=== PATIENT | male | born 1945 | race Two or more races ===

== ENCOUNTER 2017-06-09 06:24 | Inpatient (IN) | payer OTHER ==
[~2017-06-09] VITALS: Ht 182.9 cm; Wt 102.5 kg
[2017-06-09] VITALS (7 sets, daily range): BP systolic 131–173; BP diastolic 59–101
--- NOTE | 2017-06-09 06:39 | NUR ---
PT A/OX4, PT BIBA C/O SOB, PT WAS GIVEN ALBUTEROL 5MG BY EMS PRIOR TO ARRIVAL, PT STATES HE HAS BEEN HAVING SOB X 5 DAYS BUT GETTING WORSE AND WORSE X 5 DAYS, PT ON MONITOR, IN GOWN, IV PLACED PRIOR TO ARRIVAL, LABS DRAWN AND SENT TO LAB, MD AT BEDSIDE WILL CONTINUE TO MONITOR.
[2017-06-09] MEDS ORDERED: NITROGLYCERIN 0.4 MG/TAB BOTTLE ONE (06:42)
[2017-06-09 06:55] LABS: BASOPHILS % (AUTO) 0.2 % (0.0-2.0); EOSINOPHILS % (AUTO) 0.3 % (0.0-6.0); HEMATOCRIT 28 % (39-51); HEMOGLOBIN 9.3 g/dL (13.5-17.5); LYMPHOCYTES # (AUTO) 0.5 /CMM (0.8-4.8); LYMPHOCYTES % (AUTO) 7.4 % (20.0-44.0); MEAN CORPUSCULAR HEMOGLOBIN 27 PG (26.0-33.0); MEAN CORPUSCULAR HGB CONC 33 g/dl (31.0-36.0); MEAN CORPUSCULAR VOLUME 81 fL (80-96); MONOCYTES # (AUTO) 0.3 /CMM (0.1-1.30); MONOCYTES % (AUTO) 4.4 % (2.0-12.0); NEUTROPHILS # (AUTO) 5.7 /CMM (1.8-8.9); NEUTROPHILS % (AUTO) 87.7 % (43.0-81.0); PLATELET COUNT (AUTO) 176 /CMM (150-450); RED BLOOD CELL COUNT(AUTO) 3.49 MIL/uL (4.5-6.0); WHITE BLOOD COUNT (AUTO) 6.6 K/uL (4.3-11.0)
[2017-06-09] MEDS ORDERED: NITROGLYCERIN 0.4 MG/TAB BOTTLE SL ONE (07:00)
[2017-06-09 07:02] LABS: CALCIUM, SERUM 8.5 mg/dL (8.5-10.1); CREATININE 1.9 mg/dL (0.6-1.3); POTASSIUM 4.1 mmol/L (3.5-5.1)
[2017-06-09 07:10] LABS: TROPONIN I 0.098 ng/mL (0.00-0.056)
[2017-06-09] MEDS ORDERED: NTG 50 MG/D5W250 ML BOTTL 250 ML IV ONE ×2 (07:27→07:30)
[2017-06-09] MEDS ORDERED: ASPIRIN 81 MG TAB.CHEW ONE (07:27)
[2017-06-09] MEDS ORDERED: ASPIRIN 81 MG TAB.CHEW PO ONE (07:30)
--- NOTE | 2017-06-09 07:38 | NUR ---
PANEL ON-CALL PAGED
--- NOTE | 2017-06-09 07:40 | NUR ---
SECOND IV ACCESS INITIATED, PT MEDICATED ORDERED. VSS. WILL CLOSELY MONITOR.
--- NOTE | 2017-06-09 07:50 | NUR ---
DR. JOE AT BS.
--- NOTE | 2017-06-09 08:00 | NUR ---
REPORT GIVEN TO CHICHO TEAGUE FOR ICU ROOM 261.
--- NOTE | 2017-06-09 08:15 | NUR ---
DR. JAY AT BS.
[2017-06-09] MEDS ORDERED: FUROSEMIDE 40 MG/4 ML VIAL ONE (08:24)
--- NOTE | 2017-06-09 08:25 | NUR ---
TITRATED NTG PER PROTOCOL. VSS.
[2017-06-09] MEDS ORDERED: MAGNESIUM HYDROXIDE 30 ML UDC PO PRN (08:30)
[2017-06-09] MEDS ORDERED: Z GUARD REMEDY 2 OZ OINT TP PRN (08:30)
[2017-06-09] MEDS ORDERED: DEXTROSE 50%-WATER 50 ML DISP.SYRIN IV PRN (08:30)
[2017-06-09] MEDS ORDERED: ONDANSETRON HCL/PF 4 MG/2 ML VIAL IVP PRN (08:30)
[2017-06-09] MEDS ORDERED: ACETAMINOPHEN 325 MG TABLET PO PRN (08:30)
[2017-06-09] MEDS ORDERED: MAG HYDROX/AL HYDROX/SIMETH 30 ML UDC PO PRN (08:30)
[2017-06-09] MEDS ORDERED: FUROSEMIDE 20 MG/2 ML VIAL IV SCH (08:30)
--- NOTE | 2017-06-09 08:30 | NUR ---
ICU INITIAL NOTES RECEIVED PT VIA CIARRA, A/O X 4, ABLE TO MAKE NEEDS KNOWN, FOLLOWS COMMANDS, PT WAS PLACE ON 3L NC, SATING 100%, NO S/S OF RESP.DISTRESS OR SOB NOTED AT THIS TIME, PT WAS PLACED ON BEDSIDE MONITOR SHOWING A-FIB @ 82BPM, NO S/S OF CHEST PAIN OR DISCOMFORT NOTED AT THIS TIME, PT HAS LFA #20G,SL, RAC #20G, NITRO DRIP @5MCG, C/D/I/PATENT,FLUSHING WELL, NO S/S OF INFECTION/ INFILTRATION NOTED AT THIS TIME, PT IS AMBULATORY, URINAL AT BEDSIDE, ALL SAFETY MEASURES IN PLACE AT ALL TIMES, CALL LIGHT WITHIN EASY REACH, ALL NEEDS MET AT THIS TIME, WILL MONITOR PT CLOSELY
--- NOTE | 2017-06-09 08:40 | NUR ---
ICU NOTE NITRO DRIP D/C PER MD ORDER
[2017-06-09] MEDS ORDERED: hydrALAZINE HCL 50 MG TABLET PO SCH (09:00)
[2017-06-09 09:42] LABS: MAGNESIUM 2.3 mg/dL (1.8-2.4); PHOSPHORUS 3.4 mg/dL (2.5-4.9)
--- NOTE | 2017-06-09 10:00 | NUR ---
ICU NOTE AT BEDSIDE, INFORMED OF ALL LABS AND RESULTS, ORDERED PT IS BE TELE, U/S TECH AT BEDSIDE
[2017-06-09] MEDS: ATORVASTATIN 40 MG TABLET PO SCH (10:14)
[2017-06-09] MEDS: ENOXAPARIN SODIUM 30 MG/0.3 ML DISP.SYRIN SQ SCH (10:14)
[2017-06-09] MEDS: CARVEDILOL 6.25 MG TABLET PO SCH ×2 (11:12→21:57)
[2017-06-09] MEDS: AMLODIPINE BESYLATE 5 MG TABLET PO SCH (11:12)
[2017-06-09] MEDS: BLOOD SUGAR DIAGNOSTIC 1 EACH STRIP VI SCH ×3 (11:12→21:57)
[2017-06-09] MEDS: *INSULIN REGULAR(HUMULIN R)HUM 100 UNIT/ML VIAL SQ PRN ×2 (11:40→21:59)
[2017-06-09] MEDS: FUROSEMIDE 100 MG/10 ML VIAL IV SCH ×2 (13:22→19:04)
--- NOTE | 2017-06-09 13:53 | NUR ---
ICU NOTE REPORT GIVEN TO YESICA TEAGUE, PT WAS TAKEN TO ROOM 312-2, PT WAS ORIENTATED TO ROOM, PLACE IN BED WITH CALL LIGHT, RN AND HEALTH AND WELLNESS ADVISOR AWARE PT IS IN ROOM.
--- NOTE | 2017-06-09 14:10 | NUR ---
EMAIL PRODUCER NOTES RECEIVED PATIENT IN BED, NO APPARENT DISTRESS NOTED, DENIES PAIN, DENIES SOB.PATIENT AWAKE AND VERBALLY RESPONSIVE, ON TELE MONITORING SR WITH BBB. PATIENT ON 3L O2 VIA NC. IV LINE ON LFA AND RAC PATENT. ALL NEEDS MET, KEPT CLEAN AND DRY.
[2017-06-09] MEDS: INSULIN REGULAR, HUMAN 100 UNIT/ML 3 ML VIAL SQ PRN (18:31)
--- NOTE | 2017-06-09 19:00 | NUR ---
FOREIGN STUDENT ADVISER NOTES PATIENT IN BED A/OX4, IN NO APPARENT DISTRESS. DENIES PAIN DENIES SOB. IV LINE ON LFA AND RAC PATENT.ALL DUE MEDS GIVEN, ALL NEEDS MET, KEPT CLEAN AND DRY.
--- NOTE | 2017-06-09 19:25 | NUR ---
RN OPEN NOTES RECEIVED PATIENT AWAKE IN BED. A/O X4. NO SIGNS OF DISTRESS OR DISCOMFORT. BREATHING EVEN AND UNLABORED. ON TELE MONITORING WITH SR NOTED. IV ACCESS IN LFA AND RAC, PATENT AND INTACT, NO SIGNS OF REDNESS OR INFILTRATION. BED IN LOW LOCKED POSITION WITH SIDE RAILS X2. CALL LIGHT WITHIN REACH. WILL CONTINUE TO MONITOR.
[2017-06-09] MEDS: ZOLPIDEM TARTRATE 5 MG TABLET PO PRN (21:57)
--- NOTE | 2017-06-09 21:57 | NUR ---
RN NOTES ADMINISTERED AMBIEN 5MG ORDERED AT PATIENT REQUEST FOR INSOMNIA. WILL CONTINUE TO MONITOR.
[2017-06-10] VITALS (8 sets, daily range): BP systolic 118–154; BP diastolic 59–75
[2017-06-10 06:23] LABS: BASOPHILS % (AUTO) 0.3 % (0.0-2.0); EOSINOPHILS # (AUTO) 0.1 /CMM (0.0-0.7); EOSINOPHILS % (AUTO) 2.4 % (0.0-6.0); HEMATOCRIT 30 % (39-51); LYMPHOCYTES # (AUTO) 0.7 /CMM (0.8-4.8); MEAN CORPUSCULAR HEMOGLOBIN 27 PG (26.0-33.0); MEAN CORPUSCULAR HGB CONC 33 g/dl (31.0-36.0); MEAN CORPUSCULAR VOLUME 81 fL (80-96); MONOCYTES # (AUTO) 0.4 /CMM (0.1-1.30); MONOCYTES % (AUTO) 6.9 % (2.0-12.0); NEUTROPHILS # (AUTO) 4.4 /CMM (1.8-8.9); NEUTROPHILS % (AUTO) 77.4 % (43.0-81.0); PLATELET COUNT (AUTO) 182 /CMM (150-450); RDW COEFFICIENT OF VARIATION 16.3 (11.5-15.0); RED BLOOD CELL COUNT(AUTO) 3.72 MIL/uL (4.5-6.0); WHITE BLOOD COUNT (AUTO) 5.6 K/uL (4.3-11.0)
[2017-06-10 06:24] LABS: APPEARANCE,URINE CLEAR (CLEAR); BILIRUBIN,URINE NEGATIVE (NEGATIVE); BLOOD, URINE TRACE-INTA Ery/uL (NEGATIVE); COLOR,URINE YELLOW (YELLOW); KETONES,URINE NEGATIVE (NEGATIVE); LEUKOCYTE ESTERASE ,URINE NEGATIVE (NEGATIVE); NITRITE, URINE NEGATIVE (NEGATIVE); PROTEIN,URINE 1+ mg/dl (NEGATIVE); UGLUCOSE NEGATIVE (NEGATIVE); UROBILINOGEN,URINE 0.2 EU/dL (0.2)
[2017-06-10] MEDS: BLOOD SUGAR DIAGNOSTIC 1 EACH STRIP VI SCH ×4 (06:34→21:10)
[2017-06-10] MEDS: INSULIN REGULAR, HUMAN 100 UNIT/ML 3 ML VIAL SQ PRN ×3 (06:35→17:33)
[2017-06-10 06:43] LABS: ALBUMIN 3.4 g/dL (3.4-5.0); BILIRUBIN,TOTAL 0.7 mg/dL (0.2-1.0); CALCIUM, SERUM 8.8 mg/dL (8.5-10.1); CREATININE 1.6 mg/dL (0.6-1.3); MAGNESIUM 2.1 mg/dL (1.8-2.4); PHOSPHORUS 4.3 mg/dL (2.5-4.9); POTASSIUM 3.7 mmol/L (3.5-5.1); TOTAL PROTEIN, SERUM 7.2 g/dL (6.4-8.2)
[2017-06-10 06:44] LABS: BACTERIA,URINE None seen /HPF (None Seen); RBC,URINE 0-2 /HPF (0-2); SQUAMOUS EPITHELIAL CELL,UR Few /HPF (None Seen); WBC,URINE NONE SEEN /HPF (0-3)
[2017-06-10 06:46] LABS: TROPONIN I 0.268 ng/mL (0.00-0.056)
--- NOTE | 2017-06-10 07:01 | NUR ---
RN CLOSING NOTES PATIENT AWAKE IN BED. A/O X4. NO SIGNS OF DISTRESS OR DISCOMFORT. BREATHING EVEN AND UNLABORED. ON TELE MONITORING WITH SR NOTED. IV ACCESS IN LFA AND RAC, PATENT AND INTACT, NO SIGNS OF REDNESS OR INFILTRATION. NO SIGNIFICANT CHANGES THROUGH THE NIGHT. ALL NEEDS MET. BED IN LOW LOCKED POSITION WITH SIDE RAILS X2. CALL LIGHT WITHIN REACH. WILL ENDORSE TO AM SHIFT FOR LEO.
[2017-06-10 08:04] LABS: CREATININE, URINE 25.9 MG/DL (30.0-125.0); URINE TOTAL PROTEIN 58.3 mg/dL (0-11.9)
[2017-06-10 08:36] LABS: EOSINOPHIL,URINE None Seen
[2017-06-10] MEDS: AMLODIPINE BESYLATE 5 MG TABLET PO SCH (08:59)
[2017-06-10] MEDS: ATORVASTATIN 40 MG TABLET PO SCH (08:59)
[2017-06-10] MEDS: PANTOPRAZOLE 40 MG TABLET.DR PO SCH (09:00)
[2017-06-10] MEDS: CARVEDILOL 6.25 MG TABLET PO SCH ×2 (09:00→20:57)
[2017-06-10] MEDS: POTASSIUM CHLORIDE 20 MEQ TAB.PRT.SR PO SCH ×3 (09:00→12:00)
[2017-06-10] MEDS: FUROSEMIDE 100 MG/10 ML VIAL IV SCH ×3 (09:01→17:04)
[2017-06-10] MEDS: HYDROCODONE/APAP 5/325MG 1 EACH TABLET PO PRN ×2 (10:17→21:02)
[2017-06-10 11:53] LABS: INR 1.01 (0.87-1.13); PROTHROMBIN TIME 10.8 SECS (9.5-12.7)
[2017-06-10] MEDS: ENOXAPARIN SODIUM 30 MG/0.3 ML DISP.SYRIN SQ SCH (12:53)
[2017-06-10] MEDS ORDERED: SOD FERRIC GLUC 125 MG in IV NS 0.9% 100 ML IV SCH (14:00)
--- NOTE | 2017-06-10 19:30 | NUR ---
MS RN NOTES RECEIVED ON BED WATCHING TV PROGRAM,A/O X3-4,BREATHING REGULAR,NOT IN ANY FOR OF RESPIRATORY DISTRESS.SALINE LOCK LFA INTACT AND PATENT.WAS GIVEN LASIX ON DAYSHIFT,EMPTIED URINAL 1100 ML OF CLEAR URINE.DENIES CHEST PAIN,BED ON LOW POSITION AND LOCK.CALL LIGHT IN REACH,NEEDS ANTICIPATED.ISOLATION PRECAUTION FOR MRSA NARES.
--- NOTE | 2017-06-10 19:30 | NUR ---
MANAGER INSURANCE NOTES SR 72 ON TELE MONITOR
--- NOTE | 2017-06-10 21:02 | NUR ---
DIRECTOR DIGITAL SALES NOTES PAIN MANAGEMENT C/O PAIN 510 VIA RIGHT SHOULDER,MEDICATED WITH NORCO 5/325MG,1 TAB PO ORDERED FOR MODERATE PAIN.WILL MONITOR FOR RELIEF.
[2017-06-10] MEDS: *INSULIN REGULAR(HUMULIN R)HUM 100 UNIT/ML VIAL SQ PRN (21:19)
--- NOTE | 2017-06-10 21:30 | NUR ---
HAND BUNCH MAKER NOTES ACCU-CHECK BLOOD SUGAR CHECK 292,COVERED WITH HUMULIN R 6 UNITS PER MODERATE SLIDING SCALE.SNACKS PROVIDED AT BEDSIDE.
[2017-06-10] MEDS: ZOLPIDEM TARTRATE 5 MG TABLET PO PRN (22:11)
--- NOTE | 2017-06-10 22:11 | NUR ---
MARBLE AND GRANITE POLISHER NOTES C/O INSOMNIA,MEDICATED WITH AMBIEN 5MG PO PER PATIENT REQUEST.HE TOOK OFF HIS TELE MONITOR.CLAIMED ITS BOTHERS HIM AND " I'M GOING HOME TOMORROW".PRODUCTION PATTERN MAKER MADE AWARE AND PUT HIM ON STANDBY MODE
[2017-06-10] MEDS ORDERED: MUPIROCIN OINT 2% 22 GM TUBE ONE (22:22)
[2017-06-10] MEDS: MUPIROCIN OINT 2% 22 GM TUBE SCH (22:30)
--- NOTE | 2017-06-10 22:34 | NUR ---
CAR SEALER NOTES POSITIVE MRSA NARES,STARTED ON BACTROBAN 2%,APPLIED TO BOTH NARES
[2017-06-11] VITALS: BP 147/71
--- NOTE | 2017-06-11 | NUR ---
MANAGER OF SECURITY NOTES SLEEPING AT THIS TIME,KEPT WARM AND COMFORTABLE.
[2017-06-11 00:13] VITALS: BP 147/71
[2017-06-11 04:03] VITALS: BP 139/68
--- NOTE | 2017-06-11 05:30 | NUR ---
EQUIPMENT CLEANER AND TESTER NOTES ACCU-CHECK BLOOD SUGAR CHECK 223,COVERED WITH HUMULIN R 6 UNITS AC MODERATE SLIDING SCALE.
[2017-06-11] MEDS: BLOOD SUGAR DIAGNOSTIC 1 EACH STRIP VI SCH ×2 (05:44→12:09)
[2017-06-11] MEDS: INSULIN REGULAR, HUMAN 100 UNIT/ML 3 ML VIAL SQ PRN ×2 (05:46→12:07)
[2017-06-11 05:50] LABS: BASOPHILS % (AUTO) 0.4 % (0.0-2.0); EOSINOPHILS # (AUTO) 0.1 /CMM (0.0-0.7); EOSINOPHILS % (AUTO) 1.7 % (0.0-6.0); HEMATOCRIT 32 % (39-51); HEMOGLOBIN 10.8 g/dL (13.5-17.5); LYMPHOCYTES # (AUTO) 0.6 /CMM (0.8-4.8); LYMPHOCYTES % (AUTO) 9.6 % (20.0-44.0); MEAN CORPUSCULAR HEMOGLOBIN 27 PG (26.0-33.0); MEAN CORPUSCULAR HGB CONC 34 g/dl (31.0-36.0); MEAN CORPUSCULAR VOLUME 81 fL (80-96); MONOCYTES # (AUTO) 0.5 /CMM (0.1-1.30); MONOCYTES % (AUTO) 8.3 % (2.0-12.0); NEUTROPHILS # (AUTO) 5.2 /CMM (1.8-8.9); PLATELET COUNT (AUTO) 209 /CMM (150-450); WHITE BLOOD COUNT (AUTO) 6.6 K/uL (4.3-11.0)
--- NOTE | 2017-06-11 06:00 | NUR ---
APPLIANCE REPAIRER NOTES STILL REFUSING TELE MONITOR,DENIES CHEST PAIN,NO SOB
[2017-06-11 06:02] LABS: ALBUMIN 3.3 g/dL (3.4-5.0); BILIRUBIN,TOTAL 0.9 mg/dL (0.2-1.0); CREATININE 1.7 mg/dL (0.6-1.3); PHOSPHORUS 3.9 mg/dL (2.5-4.9); POTASSIUM 3.9 mmol/L (3.5-5.1); TOTAL PROTEIN, SERUM 7.1 g/dL (6.4-8.2)
[2017-06-11 06:11] LABS: TROPONIN I 0.112 ng/mL (0.00-0.056)
--- NOTE | 2017-06-11 06:20 | NUR ---
BOOKSTORE MANAGER NOTES WEIGHT TODAY 226.A/O X4,URINE OUTPUT 1999.SLEPT WELL AT NOC.NO EPISODE OF SOB.IN NO ACUTE DISTRESS.WILL ENDORSE TO DAY NURSE FOR LEO.
[2017-06-11 06:54] VITALS: BP 125/61
--- NOTE | 2017-06-11 07:10 | NUR ---
STEWARD/STEWARDESS WINE NOTES RECEIVED PATIENT IN BED, AWAKE, A/O X3. ON ROOM AIR, NO SOB. LEADS OFF, PATIENT REFUSING TO BE APPLIED ON TO HIS CHEST PER NIGHT RN. NO C/O PAIN AT THIS TIME. CALL LIGHT WITHIN REACH. WILL CONT TO MONITOR.
[2017-06-11 08:00] VITALS: BP 122/69
[2017-06-11] MEDS: ATORVASTATIN 40 MG TABLET PO SCH (08:15)
[2017-06-11 08:16] VITALS: BP 122/69
[2017-06-11] MEDS: AMLODIPINE BESYLATE 5 MG TABLET PO SCH (08:16)
[2017-06-11] MEDS: CARVEDILOL 6.25 MG TABLET PO SCH (08:16)
[2017-06-11] MEDS: PANTOPRAZOLE 40 MG TABLET.DR PO SCH (08:16)
[2017-06-11] MEDS: ENOXAPARIN SODIUM 30 MG/0.3 ML DISP.SYRIN SQ SCH (08:21)
[2017-06-11] MEDS: MUPIROCIN OINT 2% 22 GM TUBE SCH (08:22)
[2017-06-11] MEDS ORDERED: FUROSEMIDE 40 MG TABLET PO SCH (09:30)
[2017-06-11] MEDS ORDERED: POTASSIUM CHLORIDE 20 MEQ TAB.PRT.SR PO SCH (09:30)
--- NOTE | 2017-06-11 11:35 | NUR ---
PATIENT IS SEEN BY DR. MELENDEZ TODAY. PATIENT TO BE DISCHARGEE HOME ORDERED.
--- NOTE | 2017-06-11 13:04 | NUR ---
MS COSTUMED CHARACTER NOTES PATIENT HAS BEEN CLEARED FOR DISCHARGE HOME BY MD. PATIENT IS AMBULATORY, NO EPISODE OF CHEST PAIN DURING THE SHIFT. SKIN INTACT. DISCHARGE INSTRUCTION GIVEN TO THE PATIENT, INSTRUCTED TO FOLLOW UP WITH HIS PRIMARY DOCTOR IN 1 WEEK, PATIENT VERBALIZED UNDERSTANDING. IN IN RIGHT AC AND LFA REMOVED, GAUZE APPLIED,NO BLEEDING NOTED. PATIENT LEFT HOSP IN STABLE CONDITION VIA TAXI.
[2017-06-11 13:12] LABS: PTH, INTACT 53 pg/mL (15-65)
[2017-06-13 08:08] LABS: *SPE A/G RATIO 1.1 (0.7-1.7); *SPE ALBUMIN 3.4 g/dL (2.9-4.4); *SPE ALPHA-1-GLOBULIN 0.2 g/dL (0.0-0.4); *SPE ALPHA-2-GLOBULIN 0.8 g/dL (0.4-1.0); *SPE GLOBULIN, TOTAL 3.1 g/dL (2.2-3.9); *SPE M-SPIKE Not Observed g/dL (Not Observed); *SPE PROTEIN TOTAL 6.5 g/dL (6.0-8.5); *SPEGAMMA GLOBULIN 1.1 g/dL (0.4-1.8)
[2017-06-14 12:11] LABS: CALCITRIOL VIT D,1, 25 DIHYDRO 22.1 pg/mL (19.9-79.3)
== END 2017-06-11 13:08 | disposition home or self-care (01) | DRG 280 ==
LOC: ER 06:28 → ICU 08:04 → TELE 14:12 → MED 06-11 09:31
PROVIDERS: ADMIT Internal Medicine; ATTEND Internal Medicine
PROC: 0W993ZZ Drainage of Right Pleural Cavity, Percutaneous Approach (ICD-10-PCS; principal; 2017-06-10)
DX: I13.0 Hypertensive heart and chronic kidney disease with heart failure and stage 1 through stage 4 chronic kidney disease, or unspecified chronic kidney disease (principal); I21.4 Non-ST elevation (NSTEMI) myocardial infarction; I50.33 Acute on chronic diastolic (congestive) heart failure; N17.9 Acute kidney failure, unspecified; J90 Pleural effusion, not elsewhere classified; I25.10 Atherosclerotic heart disease of native coronary artery without angina pectoris; Z95.1 Presence of aortocoronary bypass graft; E78.5 Hyperlipidemia, unspecified; E11.22 Type 2 diabetes mellitus with diabetic chronic kidney disease; D63.1 Anemia in chronic kidney disease; J44.9 Chronic obstructive pulmonary disease, unspecified; N18.9 Chronic kidney disease, unspecified; E66.9 Obesity, unspecified; Z68.30 Body mass index [BMI] 30.0-30.9, adult; G47.33 Obstructive sleep apnea (adult) (pediatric)
CPT/HCPCS: 36415; 71010-TC; 71250-TC; 76770-TC; 76942-TC; 80048-TC; 80053-TC; 80061-TC; 81000-TC; 82306; 82550-TC; 82570-TC; 82652; 82728-TC; 82962-TC; 83540-TC; 83735-TC; 83880; 83970; 84100-TC; 84155; 84155-TC; 84165; 84300-TC; 84439-TC; 84484-TC; 85025-TC; 85610-TC; 87081-TC; 93307-TC; A4606; J1650; J1815; J1940; J2916; J3490; J7030; J7050; Z7610

== ENCOUNTER 2018-12-14 14:49 | Inpatient (IN) | payer OTHER ==
[~2018-12-14] VITALS: Ht 182.9 cm; Wt 96.9 kg
--- NOTE | 2018-12-14 15:04 | NUR ---
BIBRA FROM A LAUNDROMAT C/O DIZZINESS AND NEAR SYNCOPE. SYSTOLIC B/P IN THE 80'S, 500CC NS GIVEN PHONE COUNSELOR. PT IS AOX4, AMB, VSS, RR EVEN AND UNLABORED. SKIN WARM DRY INTACT. NO ACUTE DISTRESS NOTED. DENIES SOB, N/V. READY FOR EVAL.
[2018-12-14] MEDS ORDERED: IV NS 0.9% 1,000 ML BAG IV ONE ×2 (15:30→18:30)
[2018-12-14 15:43] LABS: BASOPHILS % (AUTO) 0.2 % (0.0-2.0); EOSINOPHILS % (AUTO) 0.5 % (0.0-6.0); HEMATOCRIT 25 % (39-51); LYMPHOCYTES # (AUTO) 0.2 /CMM (0.8-4.8); LYMPHOCYTES % (AUTO) 3.6 % (20.0-44.0); MEAN CORPUSCULAR HGB CONC 33 g/dl (31.0-36.0); MEAN CORPUSCULAR VOLUME 82 fL (80-96); MONOCYTES # (AUTO) 0.2 /CMM (0.1-1.30); MONOCYTES % (AUTO) 3.9 % (2.0-12.0); NEUTROPHILS # (AUTO) 5.5 /CMM (1.8-8.9); NEUTROPHILS % (AUTO) 91.8 % (43.0-81.0); PLATELET COUNT (AUTO) 192 /CMM (150-450); RED BLOOD CELL COUNT(AUTO) 3.01 MIL/uL (4.5-6.0)
[2018-12-14] MEDS ORDERED: LISI2.5T2 PO (15:49)
[2018-12-14] MEDS ORDERED: SPIR25TA6 PO (15:49)
[2018-12-14] MEDS ORDERED: BUME1TAB5 PO (15:49)
[2018-12-14] MEDS ORDERED: ATOR10TA PO (15:49)
[2018-12-14] MEDS ORDERED: INSU100V7 SQ (15:49)
[2018-12-14 16:06] LABS: ALANINE AMINOTRANSFERASE 26 U/L (12-78); ALBUMIN 3.1 g/dL (3.4-5.0); ALKALINE PHOSPHATASE 112 U/L (46-116); ASPARTATE AMINOTRANSFERASE 21 U/L (15-37); BILIRUBIN,DIRECT 0.1 mg/dL (0.0-0.2); BILIRUBIN,TOTAL 0.4 mg/dL (0.2-1.0); CALCIUM, SERUM 8.7 mg/dL (8.5-10.1); CARBON DIOXIDE 21 mmol/L (21-32); CHLORIDE 104 mmol/L (98-107); CREATININE 2.7 mg/dL (0.6-1.3); GLUCOSE 266 mg/dL (74-106); POTASSIUM 5.2 mmol/L (3.5-5.1); SODIUM SERUM 134 mmol/L (136-145); TOTAL PROTEIN, SERUM 6.9 g/dL (6.4-8.2)
[2018-12-14 16:08] LABS: UREA NITROGEN, BLOOD 116 mg/dL (7-18)
--- NOTE | 2018-12-14 16:16 | NUR ---
PT TAKEN TO CT VIA RRAYMUNDO.
[2018-12-14] MEDS ORDERED: IV NS 0.9% 500 ML BAG IV ONE (16:30)
--- NOTE | 2018-12-14 16:35 | NUR ---
PT BACK FROM CT. KENDAL WELL
--- NOTE | 2018-12-14 17:49 | NUR ---
PT RESTING COMFORTABLY IN BED. AROUSES EASILY. VSS. WILL CONT TO MONITOR.
[2018-12-14] MEDS ORDERED: CEFTRIAXONE 1GM BAG (ER ONLY) 50 ML IV ONE (18:20)
[2018-12-14] MEDS ORDERED: CEFTRIAXONE 1 G in IV D5W 50 ML IV ONE (18:30)
[2018-12-14] MEDS ORDERED: AZITHROMYCIN 500 MG in IV D5W 250 ML IV ONE (18:30)
[2018-12-14 18:57] LABS: OCCULT BLOOD STOOL POSITIVE (NEGATIVE)
--- NOTE | 2018-12-14 19:49 | NUR ---
PT RESTING COMFORTABLY, AROUSES EASILY. NO COMPLAINTS AT THIS TIME. VSS. ABX INFUSING, WILL CONT TO MONITOR.
--- NOTE | 2018-12-14 20:59 | NUR ---
ALL IVF COMPLETED, PT KENDAL WELL. NO COMPLAINTS AT THIS TIME. VSS, WILL CONT TO MONITOR.
--- NOTE | 2018-12-15 00:42 | NUR ---
Report given to Gayle TEAGUE for continuation of care.
--- NOTE | 2018-12-15 01:00 | NUR ---
MS/RN NOTES RECEIVED PT. FROM ER VIA CIARRA. PT. IS AWAKE, ALERT AND ORIENTED X3. BREATHING EVEN AND UNLABORED ON ROOM AIR. NO SOB, RESPIRATORY DISTRESS OR COMPLAINTS OF PAIN NOTED AT THIS TIME. PT. DENIES FEELING LIGHTHEADED OR DIZZY AT THIS TIME. ORIENTED PT. TO ROOM. PLACED EXTERNAL BAKELITE MOLDER ON PT. FOR TELE OBSERVATION. PT. CURRENT RHYTHM SINUS RHYTHM WITH BBB HR 76. PT. WITH RIGHT AC 20 GAUGE IV SALINE LOCK PRESENT, PATENT AND INTACT. EDUCATED PT. ON CALLING FOR ASSISTANCE BEFORE AMBULATING. PT. VERBALIZED UNDERSTANDING. BED LOCKED AND IN LOWEST POSITION, SIDE RAILS UP X2, CALL LIGHT WITHIN REACH, WILL CONTINUE TO MONITOR.
--- NOTE | 2018-12-15 01:02 | NUR ---
pt to 3w via meir
[2018-12-15 01:10] VITALS: BP 125/63
[2018-12-15] MEDS ORDERED: ACETAMINOPHEN 325 MG TABLET PO PRN (01:30)
[2018-12-15] MEDS ORDERED: ZOLPIDEM TARTRATE 5 MG TABLET PO PRN (01:30)
[2018-12-15 04:20] VITALS: BP 109/59
--- NOTE | 2018-12-15 06:46 | NUR ---
MS/RN NOTES PT. IS LYING IN BED RESTING. BREATHING EVEN AND UNLABORED ON ROOM AIR. NO SOB, RESPIRATORY DISTRESS OR COMPLAINTS OF PAIN NOTED AT THIS TIME. PT. WITH EXTERNAL PARKING LOT SIGNALER ON PT. FOR TELE OBSERVATION. PT. CURRENT RHYTHM SINUS RHYTHM WITH BBB AND PACS HR 80. PT. WITH RIGHT AC 20 GAUGE IV SALINE LOCK PRESENT, PATENT AND INTACT. ALL PT. NEEDS MET. BED LOCKED AND IN LOWEST POSITION, SIDE RAILS UP X2, CALL LIGHT WITHIN REACH, WILL ENDORSE TO DAYSHIFT NURSE FOR CONTINUITY OF CARE.
--- NOTE | 2018-12-15 07:56 | NUR ---
MS RN Opening Note Patient awake, resting in bed. No acute distress noted, SOB or signs/symptoms of chest pain. Alert and oriented x 4; able to verbalize needs accordingly. Respirations even and unlabored on room air. skin tanner: sinus rhythm with BBB at 70-80 bpm. Peripheral IV access to the right AC 20 gauge, intact, patent and saline locked. Skin warm and dry to touch. Fall and Safety precautions in place: bed in lowest and locked position, bed alarm on, side rails up x2, call light and personal possessions within reach. Oriented to safety measures and use of call light, patient verbalized understanding and demonstrated use of safety features.Will continue to monitor and intervene as needed.
[2018-12-15 08:00] VITALS: BP 118/62
[2018-12-15 08:13] LABS: BASOPHILS % (AUTO) 0.7 % (0.0-2.0); EOSINOPHILS % (AUTO) 2.5 % (0.0-6.0); HEMATOCRIT 24 % (39-51); HEMOGLOBIN 7.8 g/dL (13.5-17.5); LYMPHOCYTES # (AUTO) 0.6 /CMM (0.8-4.8); MEAN CORPUSCULAR HGB CONC 32 g/dl (31.0-36.0); MEAN CORPUSCULAR VOLUME 82 fL (80-96); MONOCYTES # (AUTO) 0.3 /CMM (0.1-1.30); MONOCYTES % (AUTO) 7.9 % (2.0-12.0); NEUTROPHILS # (AUTO) 2.8 /CMM (1.8-8.9); NEUTROPHILS % (AUTO) 72.9 % (43.0-81.0); PLATELET COUNT (AUTO) 199 /CMM (150-450); RED BLOOD CELL COUNT(AUTO) 2.95 MIL/uL (4.5-6.0); WHITE BLOOD COUNT (AUTO) 3.8 K/uL (4.3-11.0)
[2018-12-15] MEDS ORDERED: IV NS 0.9% 1,000 ML IV PRN (08:14)
[2018-12-15] MEDS: INSULIN GLARGINE, 100 UNIT/ML CARTRIDGE SQ SCH ×2 (08:31→12:00)
[2018-12-15 08:32] LABS: ALANINE AMINOTRANSFERASE 23 U/L (12-78); ALBUMIN 2.9 g/dL (3.4-5.0); ALKALINE PHOSPHATASE 95 U/L (46-116); ASPARTATE AMINOTRANSFERASE 13 U/L (15-37); BILIRUBIN,TOTAL 0.3 mg/dL (0.2-1.0); CALCIUM, SERUM 8.7 mg/dL (8.5-10.1); CARBON DIOXIDE 21 mmol/L (21-32); CHLORIDE 112 mmol/L (98-107); CREATININE 2.1 mg/dL (0.6-1.3); GLUCOSE 177 mg/dL (74-106); POTASSIUM 4.7 mmol/L (3.5-5.1); SODIUM SERUM 145 mmol/L (136-145); TOTAL PROTEIN, SERUM 6.5 g/dL (6.4-8.2)
[2018-12-15 08:35] LABS: UREA NITROGEN, BLOOD 93 mg/dL (7-18)
[2018-12-15 08:52] LABS: IRON, SERUM 64 ug/dl (50-175); TOTAL IRON BINDING CAPACITY 213 ug/dl (250-450)
[2018-12-15] MEDS ORDERED: ATORVASTATIN 10 MG TABLET PO SCH (09:00)
[2018-12-15] MEDS ORDERED: ASPIRIN EC 81 MG TABLET.DR PO SCH (09:00)
[2018-12-15 09:22] LABS: FERRITIN 203 ng/mL (8-388)
--- NOTE | 2018-12-15 10:00 | NUR ---
Spoke with Dr. Jose Raul MD regarding repeat BNP levels. None were taken with AM labs. Ordered STAT prior to patient discharge.
--- NOTE | 2018-12-15 12:35 | NUR ---
Patient refusing IV fluids to be started (Dr. Blunt wanted 1 L bolus prior to discharge); educated on importance on fluids as ordered prior to leaving. Pt. came in for dehydration. Patient also refusing lab to draw blood work for repeat BNP level. Dr. Blunt aware; confirmed patient stable for discharge. Will educate on discontinued use of home medications as ordered prior to discharge.
--- NOTE | 2018-12-15 12:50 | NUR ---
MS truck cleaner Note Patient awake, resting in bed. No acute distress noted, SOB or signs/symptoms of chest pain. Alert and oriented x 4; able to verbalize needs accordingly. Respirations even and unlabored on room air. Ambulates with steady gait. Peripheral IV access to the right AC 20 removed with catheter tip intact. No redness, swelling or bleeding of the site noted. Skin warm and dry to touch. Patient refused overall skin assessment and discharge photos; educated about benefits and policy, refusing still. ID band removed. Personal belongings and clothing items accounted for, acknowledged via signature on belongings form. Discharge instructions and Exitcare provided to patient, emphasis on stopping ordered home medications as ordered by Dr. Blunt. Patient verbalized understanding of instructions and acknowledged via signature on form. Copies placed in chart.
== END 2018-12-15 12:45 | disposition home or self-care (01) | DRG 683 ==
LOC: ER 14:49 → TELE 12-15 00:27 → MED 12-15 08:53
PROVIDERS: ADMIT Internal Medicine; ATTEND Internal Medicine
DX: N17.9 Acute kidney failure, unspecified (principal); J90 Pleural effusion, not elsewhere classified; I13.0 Hypertensive heart and chronic kidney disease with heart failure and stage 1 through stage 4 chronic kidney disease, or unspecified chronic kidney disease; I50.32 Chronic diastolic (congestive) heart failure; I25.10 Atherosclerotic heart disease of native coronary artery without angina pectoris; E86.0 Dehydration; E78.5 Hyperlipidemia, unspecified; E87.5 Hyperkalemia; N18.9 Chronic kidney disease, unspecified; Z95.5 Presence of coronary angioplasty implant and graft; Z95.1 Presence of aortocoronary bypass graft; Z79.4 Long term (current) use of insulin; I27.20 Pulmonary hypertension, unspecified; E11.22 Type 2 diabetes mellitus with diabetic chronic kidney disease; D63.1 Anemia in chronic kidney disease; D50.9 Iron deficiency anemia, unspecified; Z79.82 Long term (current) use of aspirin; R19.5 Other fecal abnormalities
CPT/HCPCS: 36415; 70450-TC; 71045-TC; 80048-TC; 80053-TC; 80076-TC; 82272-TC; 82728-TC; 82962-TC; 83540-TC; 83605-TC; 83880; 84443-TC; 84484-TC; 85025-TC; 85730-TC; 87040-TC; 87081-TC; 93307-TC; G0378; J0456; J0696; J1815; J7030; J7040; J7060